=== PATIENT | female | born 1995 | race Asian ===

== ENCOUNTER 2025-08-22 19:07 | Observation (INO) | payer MEDICAID, SELFPAY ==
[2025-08-22] VITALS (9 sets, daily range): BP systolic 116; BP diastolic 58; PULSE 72–124; RESP 17–98; TEMP 36.8; O2SAT 97–99; BMI 34.5
[2025-08-22 19:48] LABS: ROM Kit Exp Date# 04/11/28; ROM Kit Lot # 58106258; ROM Swab Mixed By: PC; Swb Mxed in Solvent 1 min? Yes
[2025-08-22 19:50] LABS: Rupture of Fetal Membranes Negative (Negative)
--- NOTE | 2025-08-22 20:23 | XR_ITS ---
Examination: Complete OB ultrasound greater than 14 weeks Date and time of exam: August 22, 2025, 2042 hours INDICATIONS: deceleration testing today Findings: Viable intrauterine single fetus with single amniotic sac presentation cephalic Cardiac motion 137 bpm Placenta posterior grade 2 Umbilical cord insertion 3 vessel seen Amniotic fluid index 10.3 cm Cervix 3.9 cm Ovaries obscured by bowel gas. Composite estimated gestational age based on BPD, head circumference, abdominal circumference, femur length is 33 weeks 6 days Estimated weight 2194 g. Survey of intracranial anatomy, spinal anatomy, abdominal anatomy, four-chamber heart performed with no abnormalities identified. Impression: Viable intrauterine gestation cephalic presentation.
--- NOTE | 2025-08-22 20:23 | XR_ITS ---
Examination: Biophysical profile, ultrasound Date and time of exam: August 22, 2025, 2050 hours INDICATIONS: decelerations today on testing Technique: Multiple transabdominal sonographic images of the pelvis abdomen obtained. Attention is directed to the breathing movement, gross body movement, amniotic fluid volume and tone. Findings: Amniotic fluid index 10.5 cm Total biophysical profile is 8 of 8. breathing movement is 2. Gross body movement is 2. tone is 2. Qualitative amniotic fluid volume is 2 Impression: Biophysical profile is 8 of 8.
[2025-08-22] MEDS: BETAMET ACET/BETAMET NA PH (Celestone) 6 MG/ML VIAL 12 MG IM (22:10)
[2025-08-22] MEDS: TERBUTALINE SULF INJ 1 MG/ML VIAL 0.25 MG SC (22:11)
== END 2025-08-22 22:55 | disposition home or self-care (01) ==
PROVIDERS: Admitting Provider Specialist; Visit Provider Specialist
DX: Z34.83 Encounter for supervision of other normal pregnancy, third trimester (principal); Z3A.33 33 weeks gestation of pregnancy
CPT/HCPCS: 59025; 59899; 76805; 76819; 84112; 96372; J0702; J3105

== ENCOUNTER 2025-08-25 14:07 | Observation (INO) | payer MEDICAID, SELFPAY ==
[2025-08-25] VITALS (7 sets, daily range): BP systolic 115; BP diastolic 58; PULSE 75–85; RESP 18–97; TEMP 36.6; O2SAT 93–98; BMI 34.7
== END 2025-08-25 14:35 | disposition home or self-care (01) ==
PROVIDERS: Admitting Provider Specialist; Visit Provider Specialist
DX: O36.8130 Decreased fetal movements, third trimester, not applicable or unspecified (principal); Z3A.34 34 weeks gestation of pregnancy
CPT/HCPCS: 59025; 59899

== ENCOUNTER 2025-09-20 10:32 | Inpatient (IN) | payer MEDICAID, SELFPAY ==
--- NOTE | 2025-09-17 06:29 | ESHP_ITS ---
RE: SANDEEP SANTOS : 1995 DATE OF ADMISSION: 09/20/2025 HISTORY OF PRESENT ILLNESS: This is a 30-year-old 3, para 2-0-0-2 with due date of 10/03 with intrauterine at 38 weeks and 0 days on 09/19 who has borderline chronic hypertension on no medications and presents for repeat delivery. She is also multiparous and she desires voluntary sterilization. She reports normal movement. She denies any leaking or bleeding. She has occasional contractions. ALLERGIES: NO KNOWN DRUG ALLERGIES. MEDICATIONS: multivitamin 1 p.o. daily. PAST MEDICAL HISTORY: Borderline chronic hypertension, depression, psoriasis, alpha thalassemia trait. FAMILY HISTORY: Sister has alpha thalassemia. Father has hypertension, diabetes. OBSTETRIC HISTORY: 2013, 40-week normal vaginal delivery, 6 pound 7 ounce male, no complications. 2019, 38-week delivery, female, no complications. PAST SURGICAL HISTORY: delivery 05/2020. REVIEW OF SYSTEMS: She denies any chest pain, palpitations, cough, fever, shortness of breath, flank pain, or lower extremity pain. PHYSICAL EXAMINATION: VITAL SIGNS: Blood pressure is 115/53, heart rate 88, respirations 18, temperature 98.6. Weight 169 pounds. HEENT: Oropharynx and sclerae clear. LUNGS: Clear to auscultation bilaterally. HEART: Regular rate and rhythm. ABDOMEN: Gravid term size. Old Pfannenstiel scar noted. EXTREMITIES: Nontender. SKIN: No gross rashes or lesions. NEUROLOGIC: No focal deficit. ASSESSMENT AND PLAN: Intrauterine at 38 weeks and 0 days, previous delivery, elects repeat delivery, multiparity, desires voluntary sterilization, borderline chronic hypertension. PLAN: delivery and bilateral tubal ligation. Informed consent was obtained. The patient made aware of the risks, complications, alternatives, and benefits of the proposed procedure and she agrees. DT: 05:58:15 TT: 06:28:00 Ref: [id number] - TID: [id number] MTDD
[2025-09-19 09:24] LABS: Basophils # (Auto) 0.0 Thou/mm3 (0.0-0.2); Basophils % (Auto) 0 % (0-2.5); Eosinophils # (Auto) 0.0 Thou/mm3 (0.0-0.5); Eosinophils % (Auto) 1 % (0-10); Hematocrit 34.5 % (36.0-46.0); Hemoglobin 11.6 g/dL (12.0-16.0); Immature Granulocytes Auto 0.06 Thou/mm3 (0.00-0.00); Lymphocytes # (Auto) 2.3 Thou/mm3 (1.0-4.8); Lymphocytes % (Auto) 28 % (10-50); Mean Corpuscular HGB Conc 33.6 g/dl (31.0-37.0); Mean Corpuscular Hemoglobin 30.5 pg (25.0-35.0); Mean Corpuscular Volume 91 fL (80-100); Monocytes # (Auto) 0.6 Thou/mm3 (0.0-0.8); Monocytes % (Auto) 7 % (0-12); Neutrophils # (Auto) 5.1 Thou/mm3 (1.8-7.7); Neutrophils % (Auto) 63 % (37-80); Nucleated Red Blood Cell # 0.02 Thou/mm3 (0.00-0.00); Nucleated Red Blood Cell % 0 /100 WBC (0); Platelet Count 175 Thou/mm3 (140-440); RDW Standard Deviation 48.4 fL (36.4-46.3); Red Blood Count 3.80 Miln/mm3 (4.00-5.20); White Blood Count 8.1 Thou/mm3 (3.6-11.0)
[2025-09-19 09:59] LABS: INR 0.9 (0.9-1.3); Partial Thromboplastin Time 24.8 Seconds (22.0-36.0); Prothrombin Time 9.7 Seconds (9.0-12.2)
[2025-09-19 10:07] LABS: Alanine Aminotransferase 14 U/L (10-49); Albumin, Serum 3.7 gm/dL (3.5-5.0); Albumin/Globulin Ratio 1.4 (1.2-2.2); Alkaline Phosphatase 100 U/L (46-116); Anion Gap 10 (7-16); Aspartate Amino Transferase 17 U/L (0-34); BUN/Creatinine Ratio 14 Ratio (12-20); Bilirubin,Total 0.3 mg/dL (0.3-1.2); Blood Urea Nitrogen 7 mg/dL (9-23); Calcium 9.7 mg/dL (8.3-10.6); Calcium (Corrected) 9.9 mg/dL (8.5-10.1); Carbon Dioxide 23.0 mMol/L (20.0-31.0); Chloride 107 mMol/L (98-107); Creatinine (Component) 0.5 mg/dL (0.6-1.3); Globulin 2.6 gm/dL (2.3-3.5); Glucose 80 mg/dL (74-106); Osmolality,Calculated 276 (275-295); Potassium 3.9 mMol/L (3.4-5.1); Sodium 140 mMol/L (136-145); Total Protein 6.3 gm/dL (5.7-8.2); eGFR > 60 See Note
[2025-09-19 10:21] LABS: Syphilis Nonreactive (Nonreactive)
[2025-09-20] VITALS (14 sets, daily range): BP systolic 107–141; BP diastolic 69–86; PULSE 72–88; RESP 12–24; TEMP 36.3–37; O2SAT 94–100; BMI 35.5
[2025-09-20] MEDS: RINGERS LACTATED 1000 ML 1,000 ML 125 ML IV ×2 (11:15→11:55)
[2025-09-20] MEDS: ceFAZolin/D5W 2 GM IV 2 GM/100 ML BAG IV (12:14)
[2025-09-20] MEDS: FAMOTIDINE INJ 10 MG/ML VIAL 2 ML 20 MG IV (12:14)
--- NOTE | 2025-09-20 12:31 | PD.ADDHP ---
Addendum History & Physical Addendum Date of report being addended: 09/20/25 Narrative: Patient reexamined and not change in the H and P.
--- NOTE | 2025-09-20 12:32 | ESDS_ITS ---
DS: Providers Provider Date of admission: 09/20/25 10:32 Primary care physician: Víctor Ghosh MD Admitting Provider: Ta Cristina MD Attending Provider on Admission: Ta Cristina MD Attending Provider on DC: Ta Cristina MD Discharging Provider: Ta Cristina MD DS: Diagnosis Discharge Diagnosis (1) delivery delivered: Status: Acute (2) Sterilization: Status: Acute (3) Endometriosis: Status: Acute Problem List Completed Was Problem List Reviewed/Reconciled?: Yes Summary/Hosp Course Peripartum Data Delivery Method: Low Transverse Procedures: Procedures Operation Date: 09/20/25 12:45 <No data on this case meets the specified criteria> Time Spent with Patient Time attestation: Total time spent providing and/or coordinating discharge services: Exam Vital Signs Temp Pulse Resp BP 97.3 F 88 16 126/85 H 09/20/25 10:35 09/20/25 10:47 09/20/25 10:35 09/20/25 10:47 Discharge Plan Plan Patient Disposition: HOME (Self Care) Patient condition on transfer: Stable Prescriptions/Referrals Prescriptions/Med Rec: New ibuprofen 600 mg tablet 600 mg PO Q6H PRN (Reason: pain) Qty: 30 0RF Continued Vitamin 27 mg iron- 800 mcg tablet 1 tab PO QDAY Referrals: Víctor Ghosh MD [Primary Care Provider, Family Practice] Patient/Caregiver Discharge Instructions Discharge Activity: activity as tolerated Other Discharge Activity Instructions:: Follow up office 2 weeks. Education Materials: C Section Dc Print Language: Hungarian Stand Alone Forms: Randa Award Info., Patient Portal Info Letter Discharge Order Discharge Orders: Discharge (Routine); Ordered 09/22/25 Ordered By: Ta Cristina Planned Discharge Date 09/22/25
--- NOTE | 2025-09-20 12:32 | ESOP_ITS ---
Operative Note - CALENDAR CONTROL CLERK BLOOD BANK Procedure Date of procedure: 09/20/25 Procedure Performed: Repeat low-transverse section via Pfannensteil skin incision Bilateral salpingectomy. Indication: Intrauterine at 38 weeks and 1 day Borderline chronic hypertension Previous delivery elects repeat delivery Multiparity desires voluntary sterilization Pre-Op diagnosis: Intrauterine at 38 weeks and 1 day Borderline chronic hypertension Previous delivery elects repeat delivery Multiparity desires voluntary sterilization Post-Op diagnosis: Intrauterine at 38 weeks and 1 day Borderline chronic hypertension Previous delivery elects repeat delivery Multiparity desires voluntary sterilization Endometriosis Stage 1 Anesthesia type: Spinal Procedure description: After proper informed consent was obtained and the patient was made aware of the risks, complications, alternatives and benefits of the proposed procedure she was taken to the operating room where she underwent induction of spinal anesthesia. She was prepped and draped in the usual sterile fashion. A timeout was performed.? A Pfannenstiel skin incision was made with the scalpel and carried through to the underlying layer of fascia with the Bovie. The fascia was nicked in the midline incision and the incision was extended bilaterally with the Bovie. The inferior aspect of the fascial incision was grasped with Kash clamps elevated and the underlying rectus muscle dissected off with the Bovie. The superior aspect the fascial incision was grasped with Kash clamps elevated and the underlying rectus muscle dissected off with the Bovie. The rectus muscles were in the midline. The peritoneum was grasped between 2 Shields clamps and entered sharply with the Metzenbaum scissors. The peritoneum was extended superiorly and inferiorly with good visualization of the bladder. The vesicouterine peritoneum was incised transversely and the bladder flap created digitally. A Arlene blade was inserted. A low transverse incision was made in the uterus with a scapel and the incision was extended digitally. The female 's head delivered and the mouth and nose were suctioned with the bulb suction. The shoulder and body delivered atraumatically. The cord was clamped after 30 second delayed cord clamping and the cord was cut.? The was handed off to the waiting Pediatric staff, cord blood was collected for lab testing. The placenta was removed complete and intact. The uterus was exteriorized and cleared of all clots and debris. The uterine incision was closed with #1-0 chromic catgut suture in a running interlocking fashion. A second layer of the same suture was used to imbricate the first layer and obtain excellent hemostasis. The vesicouterine peritoneum was closed with 2-0 chromic catgut suture in a running fashion. . Attention was turned to the left fallopian tube which was grasped at the fimbriated end with a [place] clamp and using the Enseal X-1 large jaw a left salpingectomy was performed. Hemostasis achieved. Attention was turned to the right fallopian tube which was grasped at the fimbriated end with a [place] clamp and using the Enseal X-1 large jaw a left salpingectomy was performed. Hemostasis achieved. The firm uterus was returned to the abdomen. The gutters were cleared of all clots and debris. The adnexae were revisualized along with the lower uterine segment and all was hemostatic. The peritoneum was closed with 0 chromic catgut suture in running fashion. The rectus muscle was closed with 0 chromic catgut suture. The fascia was closed with 0 Vicryl beginning at each angle and ending in the center in a running fashion. The subcutaneous tissue was irrigated with warmed normal saline solution and found to be hemostatic. The subcutaneous tissue was closed with 2-0 chromic catgut suture in a running fashion. The skin was closed with 4-0 Monocryl. A Dermabond Prineo dressing was applied and a sterile pressure dressing was applied.? She tolerated the procedure well. Counts were correct. I discussed with the patient the nature of her condition, intraoperative findings and expectation for recovery all? questions answered. Specimen: left tube and right tube Estimated blood loss (ml): 400 Findings: Viable female infant Apgars 8 and 9 Weight 6 lbs 0 oz Clear amniotic fluid Cephalic Uterus contained superficial endometriotic implants on the posterior left uterosacral ligament. Ovaries and tubes grossly within normal limits Placenta removed completely intact Complications: none Surgical staff Henrique Cristina, Surgeon Operation Date: 09/20/25 12:45 <No data on this case meets the specified criteria> Diagnosis Problem List Completed Was Problem List Reviewed/Reconciled?: Yes
[2025-09-20] MEDS: OXYTOCIN in NS 20 units 20 UNIT/1,000 ML BAG 125 UNIT IV (15:40)
[2025-09-20 19:29] LABS: Basophils # (Auto) 0.0 Thou/mm3 (0.0-0.2); Basophils % (Auto) 0 % (0-2.5); Eosinophils # (Auto) 0.0 Thou/mm3 (0.0-0.5); Eosinophils % (Auto) 0 % (0-10); Hematocrit 34.8 % (36.0-46.0); Hemoglobin 11.8 g/dL (12.0-16.0); Immature Granulocytes Auto 0.10 Thou/mm3 (0.00-0.00); Lymphocytes # (Auto) 1.0 Thou/mm3 (1.0-4.8); Lymphocytes % (Auto) 7 % (10-50); Mean Corpuscular HGB Conc 33.9 g/dl (31.0-37.0); Mean Corpuscular Hemoglobin 30.3 pg (25.0-35.0); Mean Corpuscular Volume 89 fL (80-100); Monocytes # (Auto) 0.3 Thou/mm3 (0.0-0.8); Monocytes % (Auto) 2 % (0-12); Neutrophils # (Auto) 13.1 Thou/mm3 (1.8-7.7); Neutrophils % (Auto) 91 % (37-80); Nucleated Red Blood Cell # 0.00 Thou/mm3 (0.00-0.00); Nucleated Red Blood Cell % 0 /100 WBC (0); Platelet Count 175 Thou/mm3 (140-440); RDW Standard Deviation 46.8 fL (36.4-46.3); Red Blood Count 3.90 Miln/mm3 (4.00-5.20); White Blood Count 14.5 Thou/mm3 (3.6-11.0)
[2025-09-21] MEDS: OXYTOCIN in NS 20 units 20 UNIT/1,000 ML BAG 125 UNIT IV (00:12)
[2025-09-21 00:20] VITALS: BP 109/60; PULSE 69; RESP 18; TEMP 36.9; O2SAT 96
[2025-09-21 04:40] VITALS: BP 116/68; PULSE 66; RESP 18; TEMP 36.8; O2SAT 96
--- NOTE | 2025-09-21 05:41 | ESPR_ITS ---
RE: SANDEEP SANTOS : 1995 DATE OF SERVICE: 09/21/2025 SUBJECTIVE: Postop day #1, patient has itching since delivery. No rash. She is voiding. She is ambulating. She is tolerating regular diet. She is passing flatus. She denies any excessive vaginal bleeding. She denies any dizziness or lightheadedness. She denies any chest pain, palpitations, shortness of breath, or lower extremity pain. OBJECTIVE: VITAL SIGNS: Blood pressure 116/68, heart rate 66, respirations 18, temperature is 98.2. Pulse ox is 96% on room air. LUNGS: Clear to auscultation bilaterally. HEART: Regular rate and rhythm. ABDOMEN: Dressing dry and intact. Fundus is firm, nondistended. EXTREMITIES: Nontender. LABORATORY DATA: Hemoglobin pre-delivery is 11.6. Post-delivery is 11.8. ASSESSMENT: Postop day #1 status post delivery and bilateral salpingectomy. Itching due to duramorph. PLAN: 1. Remove dressing. 2. Discontinue IV. 3. Encourage ambulation. 4. support. 5. Possible discharge home tomorrow. 6. Bendryl prn itching DT: 05:26:12 TT: 05:40:00 Ref: [id number] - TID: [id number] MTDD
[2025-09-21 08:10] VITALS: BP 112/73; PULSE 76; RESP 16; TEMP 36.8; O2SAT 96
[2025-09-21] MEDS: DOCUSATE SOD 100 MG CAPSULE PO (09:11)
[2025-09-21] MEDS: ENOXAPARIN SOD INJ 40 MG/0.4 ML SYRINGE SC (09:11)
[2025-09-21 11:52] VITALS: BP 112/73; PULSE 83; RESP 16; TEMP 36.8
[2025-09-21] MEDS: IBUPROFEN TAB 400 MG TABLET 800 MG PO (14:13)
[2025-09-21] MEDS: SIMETHICONE 80 MG CHEW PO (21:16)
[2025-09-21] MEDS: ACETAMINOPHEN 325 MG TABLET 650 MG PO (21:16)
[2025-09-21 21:20] VITALS: BP 126/80; PULSE 84; RESP 20; TEMP 37.1; O2SAT 98
[2025-09-22 04:14] VITALS: BP 130/81; PULSE 90; RESP 20; TEMP 36.9; O2SAT 98
[2025-09-22] MEDS: IBUPROFEN TAB 400 MG TABLET 800 MG PO (04:16)
--- NOTE | 2025-09-22 06:58 | ESPR_ITS ---
RE: SANDEEP SANTOS : 1995 DATE OF SERVICE: 09/22/2025 SUBJECTIVE: Post op day #2. Patient denies any problem or complaints. She is voiding. She is ambulating. She is tolerating diet. She is passing flatus. She denies any excessive vaginal bleeding. She denies any dizziness or lightheadedness. She denies any chest pain, palpitations, shortness of breath, or lower extremity pain. OBJECTIVE: Vital Signs: Blood pressure 130/81, heart rate 90, respirations 20, temperature is 98.4. Pulse oximetry is 98% on room air. Lungs: Clear to auscultation bilaterally. Heart: Regular rate and rhythm. Abdomen: Nondistended. Incision clean and intact. Fundus is firm. Extremities: Nontender. ASSESSMENT: Post op day #2 status post delivery, bilateral salpingectomy. PLAN: Discharge home, discharge instructions given, follow up in the office in 2 weeks. DT: 06:18:54 TT: 06:58:00 Ref: [id number] - TID: [id number]
[2025-09-22 08:00] VITALS: BP 112/72; PULSE 89; RESP 18; TEMP 36.7; O2SAT 98
[2025-09-22] MEDS: DOCUSATE SOD 100 MG CAPSULE PO (09:01)
[2025-09-22] MEDS: ENOXAPARIN SOD INJ 40 MG/0.4 ML SYRINGE SC (09:15)
--- NOTE | 2025-10-03 06:45 | OBDSUM_ITS ---
Data (Jules) Data Hx Section: Yes : 3 Term: 3 : 0 Livin Abortions: Spontaneous & Theraputic: 0 Delivery Data (Jules) Labor Data Induction/Augmentation Agent: None ROM date: 09/20/25 ROM time: 12:52 Amniotic membrane rupture type: Artificial Amniotic fluid description: Clear Delivery Data delivery date: 09/20/25 delivery time: 12:52 Placenta delivery date: 09/20/25 Placenta delivery time: :52 Delivered by: Ta Cristina Delivery nurse: Afua Blanco RN [place] nurse: Nicola Agudelo GROUP BILLING COORDINATOR & Tejal Monge RN Technical Delivery Manager at delivery: No Support person(s) at delivery: fob Delivery Method Delivery method: Low Transverse Presentation: Vertex Anesthesia Type Anesthesia Type: Spinal Anesthesia type: Spinal Placenta Placenta delivery description: Manual Removal Cord blood sent to lab: Yes cord blood collection: Cord Blood Type Episiotomy Episiotomy description: None Umbilical Cord cord description: 3 Vessels [place] Data (Jules) [place] Data order: 1 's gender: Female Identification band number: [id number] weight (gms): 6 lb 0.298 oz Weight (pounds): 6 lbs and 0.3 ozs [place] length: 18.75 in 1 minute: 8 5 minutes: 9
== END 2025-09-22 11:32 | disposition home or self-care (01) | DRG 539 ==
LOC: S4SX 12:28 → S4NX 12:35
PROVIDERS: Admitting Provider Specialist; PCP Family Medicine; Visit Provider Specialist
PROC: 0UL70ZZ Occlusion of Bilateral Fallopian Tubes, Open Approach (ICD-10-PCS; CPT 59514; principal; 2025-09-20 12:30)
DX: O34.211 Maternal care for low transverse scar from previous cesarean delivery (principal); Z30.2 Encounter for sterilization; Z37.0 Single live birth; Z3A.38 38 weeks gestation of pregnancy; N80.9 Endometriosis, unspecified; O16.4 Unspecified maternal hypertension, complicating childbirth
CPT/HCPCS: 36415; 80053; 85025; 85610; 85730; 86780; 86850; 86900; 86901; A4217; A4649; J0689; J1100; J1650; J2274; J2371; J2405; J2590; J3490; J7120; A9270; J2270